=== PATIENT | female | born 1995 | race Caucasian/White ===

== ENCOUNTER 2024-10-07 23:55 | Emergency (ER) | payer MEDICAID ==
[2024-10-08] MEDS: SODIUM CHLORIDE 0.9% 1,000 ML IV ONE (00:48)
[2024-10-08 01:03] LABS: BASOPHILS % 0.6 % (0.0-2.0); EOSINOPHILS % 0.9 % (0.0-5.0); HEMATOCRIT. 44.5 % (36.0-48.0); HEMOGLOBIN. 15.3 g/dL (12.0-16.0); LYMPHOCYTES % 21.7 % (20.0-50.0); MEAN CORPUSCULAR HEMOGLOBIN 32.1 pg (28.0-32.0); MEAN CORPUSCULAR HGB CONC 34.5 g/dL (31.0-37.0); MEAN CORPUSCULAR VOLUME 93.2 fL (81.0-99.0); MEAN PLATELET VOLUME 11.2 fl (7.4-10.4); MONOCYTES % 5.7 % (2.0-8.0); NEUTROPHILS % 71.1 % (40.0-76.0); PLATELET 160 x1000/uL (130-400); RED BLOOD CELL COUNT 4.77 mill/uL (4.2-5.4); RED CELL DISTRIBUTION WIDTH 12.4 % (11.6-14.6); WHITE BLOOD COUNT 7.4 x1000/uL (4.5-11.0)
[2024-10-08 01:09] LABS: CARBON DIOXIDE 20 mEq/L (21-32); CHLORIDE 111 mEq/L (98-107); POTASSIUM 3.6 mEq/L (3.5-5.1); SODIUM 142 mEq/L (136-145)
[2024-10-08 01:10] LABS: CALCIUM 9.8 mg/dL (8.7-10.4)
[2024-10-08 01:15] LABS: CREATININE 0.9 mg/dL (0.6-1.0); GLUCOSE 149 mg/dL (70-105); UREA NITROGEN BLOOD 12 mg/dL (9-23)
[2024-10-08 01:17] LABS: ALANINE AMINOTRANSFERASE 14 IU/L (10-49); ALBUMIN 4.6 g/dL (3.2-4.8); ASPARTATE AMINOTRANSFERASE 13 IU/L (<34); BILIRUBIN TOTAL 0.3 mg/dL (0.1-1.0); PROTEIN TOTAL 7.5 g/dL (6.0-8.3)
[2024-10-08 01:48] LABS: BILIRUBIN DIRECT < 0.1 mg/dL (<=3.0); ETHANOL BLOOD < 10 mg/dL (<10); TROPONIN I HIGH SENSITIVITY < 4 ng/L (3.0-34)
[2024-10-08 01:49] LABS: B-HCG QUANTITATIVE < 1 mIU/mL (<3)
[2024-10-08 02:04] VITALS: BP 122/66; PULSE 97; RESP 16; TEMP 36.66960; O2SAT 100
== END 2024-10-08 02:29 | disposition home or self-care (01) ==
LOC: ER 10-08 00:45
DX: F41.9 Anxiety disorder, unspecified (principal)
CPT/HCPCS: 80076; 80048; 80320; 84702; 85025; 84484; 36415; 96360; 99283; J7030; G0480

== ENCOUNTER 2025-05-29 20:22 | Emergency (ER) | payer MEDICAID ==
[~2025-05-29] VITALS: Ht 152.4 cm; Wt 69.0 kg
[2025-05-29 20:27] VITALS: O2SAT 99
[2025-05-29 20:52] VITALS: BP 143/93; PULSE 90; RESP 16; TEMP 36.8; O2SAT 100
[2025-05-29 21:42] LABS: BASOPHILS % 0.7 % (0.0-2.0); EOSINOPHILS % 0.6 % (0.0-5.0); HEMATOCRIT. 42.9 % (36.0-48.0); HEMOGLOBIN. 14.4 g/dL (12.0-16.0); LYMPHOCYTES % 22.1 % (20.0-50.0); MEAN PLATELET VOLUME 10.5 fl (7.4-10.4); MONOCYTES % 5.0 % (2.0-8.0); NEUTROPHILS % 71.6 % (40.0-76.0); PLATELET 171 x1000/uL (130-400); RED BLOOD CELL COUNT 4.68 mill/uL (4.2-5.4); RED CELL DISTRIBUTION WIDTH 12.3 % (11.6-14.6)
[2025-05-29 21:56] LABS: CREATININE 0.7 mg/dL (0.6-1.0)
[2025-05-29 21:57] LABS: UREA NITROGEN BLOOD 8 mg/dL (9-23)
[2025-05-29 23:36] LABS: ASPARTATE AMINOTRANSFERASE 24 IU/L (<34); BILIRUBIN DIRECT < 0.1 mg/dL (<=3.0); BILIRUBIN TOTAL 0.3 mg/dL (0.1-1.0); PROTEIN TOTAL 6.7 g/dL (6.0-8.3)
[2025-05-29 23:38] LABS: HCG SCREEN NEGATIVE
[2025-05-30 00:30] LABS: CLARITY URINE CLOUDY (CLEAR); COLOR URINE YELLOW (YELLOW)
[2025-05-30 00:31] LABS: GLUCOSE URINE NEGATIVE (NEGATIVE); KETONES URINE 1+ (NEGATIVE); LEUKOCYTE ESTERASE URINE NEGATIVE (NEGATIVE); NITRITE URINE NEGATIVE (NEGATIVE); OCCULT BLOOD URINE NEGATIVE (NEGATIVE); PH URINE 7.5 (4.5-8.0); PROTEIN URINE NEGATIVE (NEGATIVE); SPECIFIC GRAVITY URINE 1.016 (1.005-1.030); UROBILINOGEN URINE 0.2 E.U./dL (0.2-1.0)
[2025-05-30 02:37] LABS: SQUAMOUS EPITHELIAL CELL URINE FEW /lpf (RARE/1+)
[2025-05-30] MEDS ORDERED: TOPUD PO (02:37)
[2025-05-30] MEDS ORDERED: IBUP-2028 MT (02:37)
[2025-05-30 02:38] LABS: WBC URINE 0-2 /hpf (0-2)
[2025-05-30 02:39] LABS: BACTERIA URINE 1+; RBC URINE 0-2 /hpf (0-2)
== END 2025-05-30 02:50 | disposition home or self-care (01) ==
LOC: ER 20:22
DX: R10.30 Lower abdominal pain, unspecified (principal); R10.2 Pelvic and perineal pain
CPT/HCPCS: 36415; 74176; 76830; 76856; 80048; 80076; 81003; 81025; 84703; 85025; 99284